=== PATIENT | female | born 1960 | race Caucasian/White ===

== ENCOUNTER 2024-06-29 10:03 | Emergency (ER) | payer OTHER | END 2024-06-29 10:36 | disposition home or self-care (01) | LOC: MW.ED 10:03 | DX: B02.9 Zoster without complications (principal); Z79.899 Other long term (current) drug therapy; Z88.1 Allergy status to other antibiotic agents; Z91.012 Allergy to eggs; Z91.030 Bee allergy status; Z75.8 Other problems related to medical facilities and other health care | CPT/HCPCS: 99282 ==